=== PATIENT | male | born 1990 | race Hispanic/Latino ===

== ENCOUNTER 2025-03-24 12:14 | Emergency (ER) | payer OTHER, MEDICAID ==
[~2025-03-24] VITALS: Ht 152.4 cm; Wt 38.6 kg
[2025-03-24 12:56] LABS: IMMATURE GRANULOCYTE ABSOLUTE 0.04 K/uL (0-1); NUCLEATED RED BLOOD CELLS 0.0 % (0.0-0.19); PLATELET COUNT (AUTO) 182 K/uL (130-400); RED BLOOD CELL COUNT(AUTO) 5.45 MIL/uL (4.50-6.20); RED CELL DISTRIBUTION WIDTH 13.5 % (11.0-15.5); WHITE BLOOD COUNT (AUTO) 10.7 K/uL (4.8-10.8)
[2025-03-24 13:17] LABS: CREATININE 0.5 mg/dL (0.5-1.3); GLOMERULAR FILTR. RATE CALC 139 mL/min (>90); GLUCOSE,RANDOM 126 mg/dL (70-105); SODIUM SERUM 139 mmol/L (136-145); UREA NITROGEN, BLOOD 12 mg/dL (7-18)
[2025-03-24 13:21] LABS: ASPARTATE AMINOTRANSFERASE 22 U/L (10-37); TOTAL PROTEIN, SERUM 7.9 g/dL (6.0-8.3)
[2025-03-24] MEDS: 0.9%NACL 1000ML 1,000 ML IV ONE (13:36)
--- NOTE | 2025-03-24 13:53 | HMCIMG ---
EXAM: CT Abdomen and Pelvis Without IV contrast CLINICAL HISTORY: pain and vomiting TECHNIQUE: Axial computed tomography images of the abdomen and pelvis without intravenous contrast. CONTRAST: No IV contrast. COMPARISON: None provided. FINDINGS: LUNG BASES: The lung bases appear clear. No pleural effusions are seen. LIVER: Unremarkable. GALLBLADDER AND BILE DUCTS: The gallbladder appears within normal limits. No radioopaque gallstones are seen. No biliary ductal dilatation is evident. PANCREAS: Unremarkable. SPLEEN: Unremarkable. ADRENAL GLANDS: Unremarkable. KIDNEYS, URETERS, AND BLADDER: The kidneys appear within normal limits. There is no hydronephrosis or hydroureter. No urinary calculi are seen. STOMACH AND BOWEL: Unremarkable appearance of the stomach and bowel. No evidence of bowel obstruction. No evidence suggesting enteritis or colitis. APPENDIX: No evidence of acute appendicitis on this noncontrasted CT examination. PERITONEUM: No free fluid. No free air. LYMPH NODES: No lymphadenopathy is evident. REPRODUCTIVE: Unremarkable as visualized. VASCULATURE: No evidence of abdominal aortic aneurysm. BONES: No aggressive appearing osseous lesion. No acute osseous pathology is evident. Severe dextroscoliosis. Postoperative changes are seen in the form of posterior spinal fixation with pedicle screws and connecting rods, consistent with scoliosis correction instrumentation IMPRESSION: 1. No acute intra-abdominal or pelvic pathology. 2. Chronic musculoskeletal changes and postoperative changes as mentioned above. /[place]
[2025-03-24] MEDS ORDERED: ONDA-243 PO (15:47)
--- NOTE | 2025-03-24 15:48 | ERN ---
ED Note History of Present Illness Stated Complaint: X4 VOMITING Chief Complaint: Nausea,Vomiting,Diarrhea Time Seen by MD: 12:25 Dictation: 34-year-old male presenting to the emergency department with nausea vomiting, nonbloody, patient has a bed-bound history of cerebral palsy and delayed patient's bed-bound family reported history. Allergies: Coded Allergies: No Known Allergies (Unverified Allergy, Unknown, 03/24/25) Past Medical History Past Medical History: Hypertension, Seizure Surgical History: Other Review of System Dictation Unable to obtain due to baseline status Initial Vital Sign VS Vital Signs Date Time Temp Pulse Resp B/P (MAP) Pulse Ox O2 Delivery O2 Flow Rate FiO2 03/24/25 12:48 123 20 187/135 99 Room Air* 0 21 Physical Exam Dictation General: awake, alert, NAD Head/Face: Normocephalic, atraumatic Eyes: PERRL, EOMI, vision at baseline ENT: oral cavity clear, TMs clear, no signs of infection Neck: Trachea midline, supple, no nuchal rigidity Cardiovascular: RRR, normal S1/S2, No MRGs, no JVD Respiratory: CTAB, no respiratory distress, No rales or wheezes Abdomen: Soft, non-tender, non-distended, normal bowel sounds, no guarding or rebound. Skin: Warm, dry, normal turgor, no rash MS/Extremity: Pulses equal, no cyanosis, neurovascular intact, FROM Neuro: Neurologically at baseline Results (Laboratory/Radiology) Laboratory/Radiology Laboratory Tests Test 03/24/25 12:49 White Blood Count 10.7 K/uL (4.8-10.8) Red Blood Count 5.45 MIL/uL (4.50-6.20) Hemoglobin 16.0 g/dL (14.0-18.0) Hematocrit 48.0 % (42-54) Mean Corpuscular Volume 88.1 fL (79-99) Mean Corpuscular Hemoglobin 29.4 pg (27.0-33.0) Mean Corpuscular Hemoglobin Concent 33.3 g/dL (32.0-36.0) Red Cell Distribution Width 13.5 % (11.0-15.5) Platelet Count 182 K/uL (130-400) Mean Platelet Volume 13.2 fL (7.5-10.5) H Immature Granulocyte % (Auto) 0.4 % (0-1) Neutrophils (%) (Auto) 90.8 % (40.0-77.0) H Lymphocytes (%) (Auto) 4.4 % (21.0-51.0) L Monocytes (%) (Auto) 4.3 % (3.0-13.0) Eosinophils (%) (Auto) 0.0 % (0.0-8.0) Basophils (%) (Auto) 0.1 % (0.0-5.0) Neutrophils # (Auto) 9.7 K/uL (1.8-7.7) H Lymphocytes # (Auto) 0.5 K/uL (1.0-4.8) L Monocytes # (Auto) 0.5 K/uL (0.1-1.0) Eosinophils # (Auto) 0.00 K/uL (0.00-0.70) Basophils # (Auto) 0.01 K/uL (0.00-0.20) Absolute Immature Granulocyte (auto 0.04 K/uL (0-1) Nucleated Red Blood Cells 0.0 % (0.0-0.19) White Cell Morphology Comment See comments Sodium Level 139 mmol/L (136-145) Potassium Level 4.6 mmol/L (3.5-5.1) Chloride Level 101 mmol/L (101-111) Carbon Dioxide Level 26 mmol/L (21-32) Blood Urea Nitrogen 12 mg/dL (7-18) Creatinine 0.5 mg/dL (0.5-1.3) Glomerular Filtration Rate Calc 139 mL/min (>90) Random Glucose 126 mg/dL (70-105) H Lactic Acid Level 2.3 mmol/L (0.8-2.5) Total Calcium 9.3 mg/dL (8.5-10.1) Total Bilirubin 0.3 mg/dL (0.2-1.0) Direct Bilirubin < 0.1 mg/dL (0.0-0.3) Aspartate Amino Transf (AST/SGOT) 22 U/L (10-37) Alanine Aminotransferase (ALT/SGPT) 34 U/L (12-78) Alkaline Phosphatase 156 U/L (50-136) H Total Protein 7.9 g/dL (6.0-8.3) Albumin 4.5 g/dL (3.5-5.0) Lipase 27 U/L (16-77) Labs Reviewed?: Yes ED Course ED Course Orders Procedure Category Date Status Time Basic Metabolic Panel LAB 03/24/25 Complete 12:30 Cbc With Differential LAB 03/24/25 Complete 12:30 Hepatic Function Panel LAB 03/24/25 Complete 12:30 Lipase LAB 03/24/25 Complete 12:30 Lactic Acid LAB 03/24/25 Complete 12:30 Ct Abd/Pel Wo Con CT 03/24/25 Resulted Renal/Appy 12:30 Ondansetron 4mg Inj PHA 03/24/25 Complete (Zofran 4mg Inj) 12:30 0.9%Nacl 1000ml (Ns PHA 03/24/25 In Process 1000ml) 12:30 Current Medications Medications (Trade) Dose Ordered Sig/Hakeem Route PRN Reason Start Time Stop Time Status Last Admin Dose Admin Ondansetron HCl (zoFRAN 4MG INJ) 4 mg ONCE ONCE IVP 03/24/25 12:30 03/24/25 12:33 DC 03/24/25 13:36 Sodium Chloride 1,000 ml @ 0 mls/hr ONCE ONCE IV 03/24/25 12:30 03/24/25 12:33 DC 03/24/25 13:36 Vital Signs Date Time Temp Pulse Resp B/P (MAP) Pulse Ox O2 Delivery O2 Flow Rate FiO2 03/24/25 14:39 105 20 164/104 100 Room Air* 0 21 03/24/25 12:48 123 20 187/135 99 Room Air* 0 21 Medical Decision Making MDM MDM: Differential diagnosis: Rationale: Tests considered and ordered secondary to shared decision making include: Previous outside records reviewed: Old ER visits. Risk of complication and/or morbidity or mortality of patient management: None Medications-Per medication reconciliation Need for hospitalization: Patient does not meet criteria for hospitalization. Need for emergency major/minor surgery: No There are no social concerns with this patient. Prescription drug management Prescriptions will include symptomatic care Patient's prior external medical records from other ER visits were reviewed by me as indicated. Prior testing and results from previous visits were reviewed. Prior tests were taken into account with medical decision making and resource utilization, independent historian/historians were used to obtain complete medic al history. I independently interpreted the test that were performed, results were reviewed by me and considered findings on radiology if ordered. Medical management and examination interpretation discussions were had by me with other qualified healthcare professionals as indicated for the patient's care. 34-year-old male bed-bound for GI symptoms labs and CT scan stable stable for discharge. DX & DISP Disposition: Discharge Departure Impression: Primary Impression: Acute vomiting Condition: Stable Scripts Ondansetron (Ondansetron Odt) 4 Mg Tab.rapdis 1 TAB PO BID PRN for nausea/vomiting for 5 Days, #10 TAB 0 Refills Prov: RANCHO DAY MD 03/24/25 Referrals: BA OBO MD (PCP) RANCHO DAY MD Mar 24, 2025 15:48
--- NOTE | 2025-03-24 17:00 | NUR ---
TRANSFER BACK TO [facility] INITIATED WITH [facility].
[2025-03-24 18:06] VITALS: BP 154/97; PULSE 101; RESP 20; TEMP 99.4; O2SAT 98
--- NOTE | 2025-03-24 18:15 | NUR ---
[facility] AT BEDSIDE AT THIS TIME
== END 2025-03-24 18:18 | disposition home or self-care (01) ==
LOC: EDH 12:14
DX: R11.2 Nausea with vomiting, unspecified (principal); I10 Essential (primary) hypertension
CPT/HCPCS: 99285; 74176; 96374; 96361; 80076; 80048; 83690; 85025; 83605; 36415; J7030; J2405